=== PATIENT | female | born 1990 | race Caucasian/White ===

== ENCOUNTER → 2017-04-11 | Outpatient (CLI) | payer OTHER ==
[2017-04-11 11:54] LABS: ABSOLUTE BASOPHILS # (AUTO) 0.1 10^3/uL (0.0-0.2); ABSOLUTE EOSINOPHILS # (AUTO) 0.3 10^3/uL (0.0-0.6); ABSOLUTE LYMPHOCYTES (AUTO) 2.8 10^3/uL (0.5-4.7); ABSOLUTE MONOCYTES (AUTO) 0.6 10^3/uL (0.1-1.4); ABSOLUTE NEUT (AUTO) 6.3 10^3/uL (1.7-8.2); BASOPHILS % (AUTO) 0.6 % (0-2); EOSINOPHILS % (AUTO) 2.7 % (0-6); HEMATOCRIT 42.2 % (36.0-47.0); HEMOGLOBIN 13.8 g/dL (12.0-15.5); HGB HCT DIFFERENCE -0.8; MEAN CORPUSCULAR HEMOGLOBIN 27.9 pg (27.0-33.4); MEAN CORPUSCULAR HGB CONC 32.6 g/dL (32.0-36.0); MEAN CORPUSCULAR VOLUME 86 fl (80-97); MONOCYTES % (AUTO) 5.5 % (3-13); RED BLOOD COUNT 4.94 10^6/uL (3.72-5.28); RED CELL DISTRIBUTION WIDTH 14.8 % (11.5-14.0); SEGMENTED NEUTROPHILS % (AUTO) 63.2 % (42-78)
== END ==
LOC: CCC 11:09
DX: G43.909 Migraine, unspecified, not intractable, without status migrainosus (principal)
CPT/HCPCS: 36415; 85025; 86038; 86430

== ENCOUNTER 2018-04-11 09:10 | Emergency (ER) | payer SELFPAY ==
[2018-04-11 09:18] VITALS: BP 132/81
--- NOTE | 2018-04-11 09:44 | ER Document Report ---
HPI - HPI Patient complains to provider of: Cough Pain Level: 3 Context: Patient is a 28-year-old female with a history of lupus who presents to the emergency department complaining of a cough and sore throat times 10 days. Patient has tried [id number] cough cold medications without relief. Her symptoms seem to be escalating. The cough is interfering with her sleep. Associated Symptoms: Body/muscle aches, Chills, Nonproductive cough, Earache, Headache, Sinus pain/drainage, Sore throat Exacerbated by: Supine Relieved by: Denies Similar symptoms previously: No Recently seen / treated by doctor: No - ROS Systems Reviewed and Negative: Yes All other systems reviewed and negative - CONSTITUTIONAL Constitutional: REPORTS: Fever, Chills - EENT EENT: REPORTS: Sore Throat - RESPIRATORY Respiratory: REPORTS: Coughing - REPRODUCTIVE LMP: 03/23/18 Reproductive: DENIES: : Past Medical History - General Information source: Patient - Social History Smoking Status: Current Every Day Smoker Frequency of alcohol use: None Drug Abuse: None Lives with: Family Family History: Reviewed & Not Pertinent Patient has suicidal ideation: No Patient has homicidal ideation: No - Medical History Medical History: Other - lupus Pulmonary Medical History: Reports: Hx Asthma Neurological Medical History: Reports: Hx Migraine Renal/ Medical History: Denies: Hx Peritoneal Dialysis Psychiatric Medical History: Reports: Hx Depression Past Surgical History: Reports: Hx Gynecologic Surgery - Left Salpingo- oophrectomy, Hx Tonsillectomy - and adenoids - Immunizations Hx Diphtheria, Pertussis, Tetanus Vaccination: Yes Vertical Provider Document - CONSTITUTIONAL Exam Limitations: No Limitations General Appearance: WD/WN - INFECTION CONTROL TRAVEL OUTSIDE OF THE [place] IN LAST 30 DAYS: No - HEENT HEENT: Atraumatic, Pharyngeal Erythema Notes: TM sdull bilat, + ethmoid and maxillary sinus pain - NECK Neck: Supple - RESPIRATORY Respiratory: Breath Sounds Normal, No Respiratory Distress - CARDIOVASCULAR Cardiovascular: Regular Rate, Regular Rhythm - MUSCULOSKELETAL/EXTREMETIES Musculoskeletal/Extremeties: MAEW - NEURO Level of Consciousness: Awake, Alert, Appropriate Course - Re-evaluation Re-evalutation: 04/11/18 09:49 History and physical are consistent with an uncomplicated acute bacterial sinus infection with an upper respiratory infection. There are no signs of respiratory distress or pneumonia. Home care, primary care follow-up in ED return precautions were discussed with the patient. Patient is agreeable with plan is stable for discharge - Vital Signs Vital signs: Temp Pulse Resp BP Pulse Ox 98.4 F 69 16 132/81 H 99 04/11/18 09:13 04/11/18 09:13 04/11/18 09:13 04/11/18 09:13 04/11/18 09:13 Discharge - Discharge Clinical Impression: Acute sinusitis Qualifiers: Sinusitis location: frontal Recurrence: non-recurrent Qualified Code(s): J01.10 - Acute frontal sinusitis, unspecified Condition: Stable Disposition: HOME, SELF-CARE Instructions: Antibiotic Therapy ([facility]), Cough Suppressant & Expectorant Medications, Sinusitis ([facility]), Strep Throat ([facility]) Additional Instructions: Please take all your medications as prescribed I recommend [id number] Mucinex D in addition to your prescribed medications Lozenges, salt water gargles for comfort Increase your hydration Follow-up with your primary care if symptoms persist or worsen Prescriptions: Benzonatate [Tessalon Perles 100 mg Capsule] 200 mg PO Q8HP PRN #40 capsule PRN Reason: Amox Tr/Potassium Clavulanate [Augmentin 875-125 Tablet] 1 tab PO BID 10 Days # 20 tablet Fluconazole [Diflucan] 200 mg PO ONCE PRN #1 tablet PRN Reason: Referrals: [facility] [Primary Care Provider] - Follow up as needed
== END 2018-04-11 09:47 | disposition home or self-care (01) ==
LOC: ER 09:10
DX: J01.10 Acute frontal sinusitis, unspecified (principal); J02.9 Acute pharyngitis, unspecified; R05 Cough; F17.200 Nicotine dependence, unspecified, uncomplicated
CPT/HCPCS: 87070; 87880; 99283

== ENCOUNTER → 2018-05-17 | Outpatient (CLI) | payer OTHER ==
[2018-05-17 11:05] LABS: ABSOLUTE BASOPHILS # (AUTO) 0.1 10^3/uL (0.0-0.2); ABSOLUTE EOSINOPHILS # (AUTO) 0.2 10^3/uL (0.0-0.6); ABSOLUTE LYMPHOCYTES (AUTO) 3.2 10^3/uL (0.5-4.7); ABSOLUTE MONOCYTES (AUTO) 0.9 10^3/uL (0.1-1.4); ABSOLUTE NEUT (AUTO) 8.2 10^3/uL (1.7-8.2); BASOPHILS % (AUTO) 0.5 % (0-2); EOSINOPHILS % (AUTO) 1.3 % (0-6); HEMATOCRIT 40.1 % (36.0-47.0); HEMOGLOBIN 13.1 g/dL (12.0-15.5); LYMPHOCYTES % (AUTO) 25.5 % (13-45); MEAN CORPUSCULAR HEMOGLOBIN 28.2 pg (27.0-33.4); MEAN CORPUSCULAR HGB CONC 32.7 g/dL (32.0-36.0); MEAN CORPUSCULAR VOLUME 86 fl (80-97); MONOCYTES % (AUTO) 6.9 % (3-13); PLATELET COUNT 312 10^3/uL (150-450); RED BLOOD COUNT 4.66 10^6/uL (3.72-5.28); RED CELL DISTRIBUTION WIDTH 13.7 % (11.5-14.0); SEGMENTED NEUTROPHILS % (AUTO) 65.8 % (42-78); TOTAL CELLS COUNTED % (AUTO) 100 %; WHITE BLOOD COUNT 12.4 10^3/uL (4.0-10.5)
[2018-05-17 11:26] LABS: APPEARANCE,URINE CLEAR; BILIRUBIN,URINE NEGATIVE (NEGATIVE); COLOR,URINE YELLOW; GLUCOSE, URINE NEGATIVE (NEGATIVE); KETONES,URINE NEGATIVE (NEGATIVE); LEUKOCYTE ESTERASE,URINE NEGATIVE (NEGATIVE); NITRITE,URINE NEGATIVE (NEGATIVE); PROTEIN,URINE NEGATIVE (NEGATIVE); UROBILINOGEN,URINE NEGATIVE mg/dL (<2.0)
[2018-05-17 11:30] LABS: ALANINE AMINOTRANSFERASE 27 U/L (9-52); ALBUMIN 4.3 g/dL (3.5-5.0); ALKALINE PHOSPHATASE 71 U/L (38-126); ANION GAP 13 (5-19); ASPARTATE AMINO TRANSFERASE 14 U/L (14-36); BILIRUBIN,DIRECT 0.3 mg/dL (0.0-0.4); BILIRUBIN,TOTAL 0.4 mg/dL (0.2-1.3); BLOOD UREA NITROGEN 9 mg/dL (7-20); CALCIUM 9.5 mg/dL (8.4-10.2); CARBON DIOXIDE 20 mmol/L (22-30); CHLORIDE 110 mmol/L (98-107); GLUCOSE 75 mg/dL (75-110); POTASSIUM 4.2 mmol/L (3.6-5.0); SODIUM 143.1 mmol/L (137-145); URIC ACID 3.8 mg/dL (2.5-6.2)
[2018-05-17 11:36] LABS: C-REACTIVE PROTEIN < 5.0 mg/L (<10.0)
[2018-05-17 11:52] LABS: ERYTHROCYTE SEDIMENTATION RATE 10 mm/hr (0-20)
== END ==
LOC: CCC 10:18
DX: M32.10 Systemic lupus erythematosus, organ or system involvement unspecified (principal)
CPT/HCPCS: 36415; 80053; 81001; 84550; 85025; 85652; 86140

== ENCOUNTER 2018-09-09 03:00 | Emergency (ER) | payer SELFPAY ==
[2018-09-09] MEDS ORDERED: NORMAL SALINE 1000 ML 1,000 ML IV ONE (03:16)
[2018-09-09] MEDS ORDERED: METOCLOPRAMIDE HCL INJ/PF 10 MG/2 ML SDV IV ONE (03:16)
[2018-09-09] MEDS ORDERED: DIPHENHYDRAMINE HCL 50 MG/ML VIAL IV ONE (03:16)
--- NOTE | 2018-09-09 03:23 | ER Document Report ---
ED General - General Chief Complaint: Headache >24 hrs old Stated Complaint: HEADACHE/VOMITING Time Seen by Provider: 09/09/18 03:10 Notes: Patient is a 28-year-old female presents with complaint of severe sudden onset headache that occurred 2 nights ago. Since then she has had waxing waning of the headache and then tonight it woke up from sleep and was severe with vomiting therefore she came to the ER. Headache is in the posterior occipital region into the neck. She has some associated neck stiffness. No weakness or numbness into extremities. No facial droop. She has a history of chronic migraines but says her migraines are typically behind her right eye. She has her migraines usually do not affect the back of her head or neck. She says this headache feels very different from her typical migraines. No recent fevers or infections. No recent trauma or injuries. No other complaints at this time. TRAVEL OUTSIDE OF THE [place] IN LAST 30 DAYS: No - Related Data Allergies/Adverse Reactions: ibuprofen Allergy (Verified 09/09/18 04:04) morphine [Morphine] Allergy (Verified 09/09/18 04:04) naproxen [Naproxen] Allergy (Verified 09/09/18 04:04) NSAIDS (Non-Steroidal Anti-Inflamma Allergy (Verified 09/09/18 04:04) Sulfa (Sulfonamide Antibiotics) Allergy (Verified 09/09/18 04:04) Past Medical History - Social History Smoking Status: Unknown if Ever Smoked Frequency of alcohol use: None Drug Abuse: None Family History: Reviewed & Not Pertinent Pulmonary Medical History: Reports: Hx Asthma Neurological Medical History: Reports: Hx Migraine Renal/ Medical History: Denies: Hx Peritoneal Dialysis Psychiatric Medical History: Reports: Hx Depression Past Surgical History: Reports: Hx Gynecologic Surgery - Left Salpingo- oophrectomy, Hx Tonsillectomy - and adenoids - Immunizations Hx Diphtheria, Pertussis, Tetanus Vaccination: Yes Review of Systems - Review of Systems Notes: My Normal Review Basic REVIEW OF SYSTEMS: CONSTITUTIONAL : Denies fever, chills, or sweats. Denies recent illness. EENT: Denies eye, ear, throat, or mouth pain or symptoms. Denies nasal or sinus congestion. RESPIRATORY: Denies cough, cold, or chest congestion. Denies shortness of breath, difficulty breathing, or wheezing. GASTROINTESTINAL: Denies abdominal pain. Has vomiting GENITOURINARY: Denies difficulty urinating, painful urination, burning, frequency, or blood in urine. FEMALE GENITOURINARY: Denies vaginal bleeding, abnormal or irregular periods. MUSCULOSKELETAL: Has neck pain SKIN: Denies rash or skin lesions. LYMPHATIC: Denies swollen, enlarged glands. NEUROLOGICAL: Denies altered mental status or loss of consciousness. Severe headache. Denies weakness or paralysis or loss of use of either side. Denies problems with gait or speech. Denies sensory or motor loss. ALL OTHER SYSTEMS REVIEWED AND NEGATIVE. Physical Exam - Vital signs Vitals: Temp Pulse Resp BP Pulse Ox 97.8 F 69 18 121/82 98 09/09/18 03:03 09/09/18 03:03 09/09/18 03:03 09/09/18 03:03 09/09/18 03:03 - Notes Notes: General Appearance: Well nourished, alert, cooperative, no acute distress, moderate obvious discomfort. Vitals: reviewed, See vital signs table. Head: no swelling or tenderness to the head Eyes: PERRL, EOMI, Conjuctiva clear Mouth: No decreasd moisture Neck: Supple, no reducible tenderness palpation of the neck. Lungs: No wheezing, No rales, No rhonci, No accessory muscle use, good air exchange bilaterally. Heart: Normal rate, Regular rythm, No murmur, no rub Abdomen: Normal BS, soft, No rigidity, No abdominal tenderness, No guarding, no rebound, no abdominal masses, no organomegaly Extremities: strength 5/5 in all extremities, good pulses in all extremities, no swelling or tenderness in the extremities, no edema. Skin: warm, dry, appropriate color, no rash Neuro: speech clear, oriented x 3, normal affect, responds appropriately to questions. Cranial nerves II through XII are intact. Distal sensation intact. Patient moves all extremities without difficulty. Normal gait. Course - Re-evaluation Re-evalutation: 09/09/18 04:24 On reevaluation the patient's headache is still present. CTA of the head and neck are negative. I talked at length about CTA. I informed her that CT is sensitive for picking up see 1 years however is not 100% sensitive. I informed her that we could still be missing a cerebral aneurysm that is bleeding as a potential cause of her headache. I informed her the only test that is 100% sensitive would be a lumbar puncture. She has had lumbar punctures before. She is understanding of the procedure. She is understanding of the fact that CTA of the head is very sensitive for cerebral aneurysms but not 100% in ruling out bleeding. At this time she wants to hold off on a lumbar puncture and wants to continue with different treatment options for her headache. I will order for the pain medicine and then we will readdress the question about lumbar puncture afterwards. 09/09/18 05:14 She says her headache is feeling much improved. I ill let her rest another 15 minutes and then reassess her. 09/09/18 05:43 His headache is still completely resolved and she looks very well and very comfortable. I discussed again with her about lumbar puncture that is our recommendation to have this performed being is 1-6 and 100% rule out bleeding aneurysm. She has had lumbar punctures in the past and says that following lumbar punctures she developed post-LP headache. She says she feels very well and understands the risks she is taking by not having the lumbar puncture performed. She said prefers to go home but agrees to return to ER immediately if she has any recurrence of this headache or if she feels unwell in any way. Patient will be discharged home as she requests. Patient informed that we are happy to reevaluate her at any time and want her to return if she has any recurrence of symptoms. Dictation of this chart was performed using voice recognition software; therefore, there may be some unintended grammatical errors. - Vital Signs Vital signs: Temp Pulse Resp BP Pulse Ox 97.8 F 69 54 H 104/51 L 96 09/09/18 03:03 09/09/18 03:03 09/09/18 05:01 09/09/18 05:01 09/09/18 05:01 - Laboratory Result Diagrams: 09/09/18 03:31 09/09/18 03:31 Laboratory results interpreted by me: 09/09/18 09/09/18 03:31 03:31 WBC 15.3 H RDW 14.2 H Absolute Neutrophils 10.1 H Creatinine 0.51 L Discharge - Discharge Clinical Impression: Headache Qualifiers: Headache type: unspecified Headache chronicity pattern: acute headache Intractability: not intractable Qualified Code(s): R51 - Headache Condition: Good Disposition: HOME, SELF-CARE Additional Instructions: As discussed with you we do not know the exact cause of your headache. This could be an atypical migraine for you however there is no way to know this for sure. We are glad that your headache is better however we want you to have a low threshold to return to ER if you have recurrence of your headache. This is because we are unable to 100% rule out the possibility of a bleeding aneurysm with CT scan alone. As discussed with you, lumbar puncture is the one test I can perform at this time to 100% rule this out. We suspect your right to decide against a lumbar puncture however we want you to have a very low threshold to return to the ER if you have recurrence of the headache, as a bleeding aneurysm could be potentially life-threatening. Please return to ER anytime if you have any further concerns or feel that your headache is returning in any way.
[2018-09-09 03:41] LABS: ABSOLUTE BASOPHILS # (AUTO) 0.1 10^3/uL (0.0-0.2); ABSOLUTE EOSINOPHILS # (AUTO) 0.2 10^3/uL (0.0-0.6); ABSOLUTE LYMPHOCYTES (AUTO) 3.5 10^3/uL (0.5-4.7); ABSOLUTE MONOCYTES (AUTO) 1.4 10^3/uL (0.1-1.4); ABSOLUTE NEUT (AUTO) 10.1 10^3/uL (1.7-8.2); BASOPHILS % (AUTO) 0.8 % (0-2); EOSINOPHILS % (AUTO) 1.5 % (0-6); HEMATOCRIT 39.4 % (36.0-47.0); HEMOGLOBIN 13.2 g/dL (12.0-15.5); LYMPHOCYTES % (AUTO) 22.7 % (13-45); MEAN CORPUSCULAR HEMOGLOBIN 28.4 pg (27.0-33.4); MEAN CORPUSCULAR HGB CONC 33.5 g/dL (32.0-36.0); MEAN CORPUSCULAR VOLUME 85 fl (80-97); MONOCYTES % (AUTO) 8.9 % (3-13); PLATELET COUNT 289 10^3/uL (150-450); RED BLOOD COUNT 4.65 10^6/uL (3.72-5.28); RED CELL DISTRIBUTION WIDTH 14.2 % (11.5-14.0); SEGMENTED NEUTROPHILS % (AUTO) 66.1 % (42-78); TOTAL CELLS COUNTED % (AUTO) 100 %; WHITE BLOOD COUNT 15.3 10^3/uL (4.0-10.5)
[2018-09-09 03:52] LABS: INTERNATIONAL RATION (INR) 0.93; PROTHROMBIN TIME 12.9 SEC (11.4-15.4)
[2018-09-09 03:53] LABS: PARTIAL THROMBOPLASTIN TIME 28.5 SEC (23.5-35.8)
[2018-09-09 04:01] LABS: ANION GAP 10 (5-19); BLOOD UREA NITROGEN 10 mg/dL (7-20); CALCIUM 9.6 mg/dL (8.4-10.2); CARBON DIOXIDE 25 mmol/L (22-30); CHLORIDE 107 mmol/L (98-107); GLUCOSE 95 mg/dL (75-110); POTASSIUM 4.9 mmol/L (3.6-5.0); SODIUM 141.8 mmol/L (137-145)
--- NOTE | 2018-09-09 04:19 | RADIOLOGY REPORT (SQ) ---
EXAM DESCRIPTION: CT HEAD ANGIOGRAPHY WITHOUT THEN WITH IV CONTRAST, CT NECK ANGIOGRAPHY WITHOUT THEN WITH IV CONTRAST COMPLETED DATE/TME: 09/09/2018 03:17 CLINICAL HISTORY: 28 years, Female, headache, neck pain COMPARISON: None. TECHNIQUE: Rapid acquisition spiral images were obtained following the intravenous administration of contrast. 3D MIP reconstructions were performed. DLP: 1536 mGy-cm Images stored on PACS. All CT scanners at this facility use dose modulation, iterative reconstruction, and/or weight based dosing when appropriate to reduce radiation dose to as low as reasonably achievable (ALARA). [facility]: Dose Right [facility]: CareDose [facility]: Dose Right [facility]: Teradose 4D [facility]: Nveloped LIMITATIONS: None. FINDINGS: CTA NECK: Aortic arch: Standard anatomy. No atherosclerosis. No great vessel origin stenosis. Left carotid system: The common carotid artery, carotid bifurcation , and internal carotid artery have normal course, caliber, and contour without atherosclerosis or stenosis by NASCET criteria Right carotid system: The common carotid artery, carotid bifurcation , and internal carotid artery have normal course, caliber, and contour without atherosclerosis or stenosis by NASCET criteria Vertebral arteries: Left dominant system. Normal course, caliber, and contour without atherosclerosis or stenosis>] Nonvascular tissues: No mucosal contour abnormality, abnormal enhancement, or asymmetry. Normal salivary and thyroid glands. No lymphadenopathy. CTA BRAIN: Distal Internal carotid arteries: Normal course, caliber, and contour without atherosclerosis or stenosis Reading of Akbar: Standard configuration without proximal stenosis or aneurysm. Anterior cerebral arteries: No focal stenosis or aneurysm. Middle cerebral arteries: No focal stenosis or aneurysm Posterior cerebral arteries: No focal stenosis or aneurysm. Vertebrobasilar circulation: The intradural vertebral arteries, basilar artery, and all cerebellar branches are patent without focal stenosis or aneurysm. Veins: The major dural venous sinus, cortical and deep cerebral veins are patent. Paranasal sinuses:Clear IMPRESSION: 1. No major branch occlusion, flow limiting stenosis, or aneurysm is identified intracranially. 2. No cervical carotid or vertebral stenosis TECHNICAL DOCUMENTATION: Quality ID # [id number]: Final reports with documentation of one or more dose reduction techniques (e.g., Automated exposure control, adjustment of the mA and/or kV according to patient size, use of iterative reconstruction technique) 2010 [employer]- All Rights Reserved
[2018-09-09] MEDS ORDERED: HYDROMORPHONE HCL INJ/PF 2 MG/ML AMPULE IV ONE (04:23)
[2018-09-09] MEDS ORDERED: DEXAMETHASONE SOD PHOS INJ 10 MG/1 ML VIAL IV ONE (04:24)
[2018-09-09 06:01] VITALS: BP 100/53
== END 2018-09-09 05:57 | disposition home or self-care (01) ==
LOC: ER 03:00
DX: R51 Headache (principal); R11.10 Vomiting, unspecified; M43.6 Torticollis; M54.2 Cervicalgia; J45.909 Unspecified asthma, uncomplicated; Z86.69 Personal history of other diseases of the nervous system and sense organs; Z88.6 Allergy status to analgesic agent; Z88.5 Allergy status to narcotic agent; Z88.8 Allergy status to other drugs, medicaments and biological substances; Z88.2 Allergy status to sulfonamides
CPT/HCPCS: 99284; 96361; 96374; 96375; 36415; 85025; 85610; 85730; 80048; 70496; 70498; J1200; J2765; J1170; J7030; J1100

== ENCOUNTER 2018-09-20 11:52 | Emergency (ER) | payer SELFPAY ==
[2018-09-20 11:58] VITALS: BP 136/75
--- NOTE | 2018-09-20 13:10 | ER Document Report ---
ED Headache - General Chief Complaint: Headache Stated Complaint: HEADACHE Time Seen by Provider: 09/20/18 13:00 Mode of Arrival: Ambulatory Information source: Patient Notes: History of Present Illness Chief Complaint: [headache] [ ] History obtained from [patient] 28 years old female presents today with headache and neck pain, she was fully evaluated a few days ago in the ER. She does work involves a lot of lifting. She was nauseous and vomited yesterday once. Has been taking Fioricet without help. Symptoms began: [today] Onset: [gradual] Timing: [constant] Quality: ["pain"] No different than prior severe headaches Intensity: [severe, but not worst ever] Location: [frontal] Aggravating factors: [none] Relieving factors: [none] Denies neck pain or stiffness Denies rash Denies visual loss or eye pain. Denies tick bite Denies head injury Denies weakness, numbness, incontinence, seizure, LOC Review of systems : All other systems negative as reviewed. CONSTITUTIONAL No fever. EYES No eye pain. ENT No URI symptoms, No sore throat, No ear pain. CARDIOVASCULAR No chest pain, No palpitations, No edema. RESPIRATORY No Cough, No SOB, No wheezing. GASTROINTESTINAL No abdominal pain, No nausea, No vomiting, No diarrhea, No constipation, No melena, No rectal bleeding. GENITOURINARY No UTI symptoms. MUSCULOSKELETAL No back pain. SKIN No Rash. NEUROLOGIC No paralysis, No parathesias. ENDOCRINE No polyuria. HEMO/LYMPATIC Patient does not bruise easily. PSYCHIATRIC No depression. Physical Exam CONSTITUTIONAL Vital signs reviewed, Comfortable, Alert and oriented X 3. HEAD Atraumatic, Normal cephalic. EYES No discharge from eye, Sclera are not injected, Extraocular muscles intact, Conjunctiva are normal.perrl,2mm, no photophobia, no nystagmus, fundi wnl. ENT Ears normal to inspection, Nose examination normal, Oropharynx normal, Mucous membranes pink, moist, normal in color. NECK Sharp paraspinal muscular tenderness were noted on palpation Normal inspection, supple, Normal ROM, No jugular venous distention, No meningeal signs, no carotid bruit or tenderness. RESPIRATORY/CHEST Chest is non-tender, Breath sounds normal, No respiratory distress. CARDIOVASCULAR RRR, Heart sounds normal. ABDOMEN Abdomen is non-tender, No masses, Bowel sounds normal, No distension, No peritoneal signs. BACK Normal inspection. UPPER EXTREMITY Inspection normal, No cyanosis/clubbing/edema. LOWER EXTREMITY Inspection normal, No cyanosis/clubbing/edema, No calf tenderness. NEURO cn intact, no astreixis, no pronator drift, finger to nose testing coordinated bilaterally, 1+ deep tendon reflexes x 4 ext, down going babinski bilaterally , normal speech, Motor exam normal, Sensory exam normal. SKIN Skin is warm and dry, No rash. LYMPHATIC No adenopathy in neck. PSYCHIATRIC Normal affect. TRAVEL OUTSIDE OF THE [place] IN LAST 30 DAYS: No - HPI Notes: Dictated - Related Data Allergies/Adverse Reactions: ibuprofen Allergy (Verified 09/20/18 11:55) morphine [Morphine] Allergy (Verified 09/20/18 11:55) naproxen [Naproxen] Allergy (Verified 09/20/18 11:55) NSAIDS (Non-Steroidal Anti-Inflamma Allergy (Verified 09/20/18 11:55) Sulfa (Sulfonamide Antibiotics) Allergy (Verified 09/20/18 11:55) Past Medical History - Social History Smoking Status: Current Every Day Smoker Chew tobacco use (# tins/day): No Frequency of alcohol use: None Drug Abuse: None Family History: Reviewed & Not Pertinent Patient has suicidal ideation: No Patient has homicidal ideation: No Pulmonary Medical History: Reports: Hx Asthma Neurological Medical History: Reports: Hx Migraine Renal/ Medical History: Denies: Hx Peritoneal Dialysis Psychiatric Medical History: Reports: Hx Depression Past Surgical History: Reports: Hx Gynecologic Surgery - Left Salpingo- oophrectomy, Hx Tonsillectomy - and adenoids - Immunizations Hx Diphtheria, Pertussis, Tetanus Vaccination: Yes Review of Systems - Review of Systems Notes: Dictated Physical Exam - Vital signs Vitals: Temp Pulse Resp BP Pulse Ox 97.9 F 67 18 136/75 H 98 09/20/18 11:56 09/20/18 11:56 09/20/18 11:56 09/20/18 11:56 09/20/18 11:56 - Notes Notes: Dictated Course - Vital Signs Vital signs: Temp Pulse Resp BP Pulse Ox 97.9 F 67 18 136/75 H 98 09/20/18 11:56 09/20/18 11:56 09/20/18 11:56 09/20/18 11:56 09/20/18 11:56 Discharge - Discharge Clinical Impression: Acute cervical sprain Qualifiers: Encounter type: initial encounter Qualified Code(s): S13.9XXA - Sprain of joints and ligaments of unspecified parts of neck, initial encounter Condition: Fair Disposition: HOME, SELF-CARE Instructions: Headache ([facility]), Neck Injury (Cervical Strain) ([facility]) Prescriptions: Baclofen [Baclofen 10 mg Tablet] 10 mg PO TID #90 tab Diazepam [Valium 2 mg Tablet] 2 mg PO BID #15 tablet Tramadol HCl [Ultram] 50 mg PO TID #14 tablet
== END 2018-09-20 13:11 | disposition home or self-care (01) ==
LOC: ER 11:52
DX: S13.9XXA Sprain of joints and ligaments of unspecified parts of neck, initial encounter (principal); R51 Headache; X58.XXXA Exposure to other specified factors, initial encounter; F17.200 Nicotine dependence, unspecified, uncomplicated; Z88.6 Allergy status to analgesic agent; Z88.2 Allergy status to sulfonamides
CPT/HCPCS: 99283

== ENCOUNTER 2018-11-10 04:52 | Emergency (ER) | payer SELFPAY ==
[2018-11-10] MEDS ORDERED: CLINDAMYCIN HCL 150 MG CAPSULE PO ONE (05:47)
--- NOTE | 2018-11-10 05:53 | ER Document Report ---
ED General - General Chief Complaint: Facial Swelling Stated Complaint: FACIAL SWELLING Time Seen by Provider: 11/10/18 05:47 TRAVEL OUTSIDE OF THE [place] IN LAST 30 DAYS: No - HPI Notes: Patient is a 28-year-old female that presents to the emergency department for chief complaint of right facial swelling. Patient states she had some right lower dental pain yesterday and when she woke up this morning the right side of her face was swelling. She denies any drainage. She denies any fevers or chills. She is not having any swelling underneath her tongue or difficulty breathing. She has a history of dental decay and has an appointment on 11/14/18 with a climatology professor to discuss getting her teeth extracted and implants put in. Past Medical History: Lupus, ovarian cancer Past Surgical History: Oophorectomy, partial bowel resection Social History: Denies drugs alcohol and tobacco Family History: Reviewed and noncontributory for presenting illness Allergies: Reviewed, see documented allergy list. REVIEW OF SYSTEMS: CONSTITUTIONAL : No fever No chills No diaphoresis No recent illness EENT: Dental pain Facial swelling No vision changes No congestion No sore throat CARDIOVASCULAR: No chest pain No palpitations RESPIRATORY: No shortness of breath No cough No difficulty breathing GASTROINTESTINAL: No abdominal pain No nausea No vomiting No diarrhea GENITOURINARY: No dysuria No hematuria No difficulty urinating MUSCULOSKELETAL: No back pain No leg pain No arm pain SKIN: No rashes No lesions LYMPHATIC: No swollen, enlarged glands. NEUROLOGICAL: No lightheadedness No headache No weakness No paresthesias PSYCHIATRIC: No anxiety No depression PHYSICAL EXAMINATION: Vital signs reviewed, nursing noted reviewed. GENERAL: Well-appearing, well-nourished and in no acute distress. HEAD: Atraumatic, normocephalic. EYES: Eyes appear normal, extraocular movements intact, sclera anicteric, conjunctiva are normal. ENT: Diffuse dental decay worse on the right posterior mandibular teeth. Facial swelling overlying right mandible with no discernible area of fluctuance. No facial erythema. No sublingual edema. Nares patent, oropharynx clear without exudates. Moist mucous membranes. NECK: Normal range of motion, supple without lymphadenopathy LUNGS: Breath sounds clear to auscultation bilaterally and equal. No wheezes rales or rhonchi. HEART: Regular rate and rhythm without murmurs ABDOMEN: Soft, nontender, normoactive bowel sounds. No rebound, guarding, or rigidity. No masses appreciated. EXTREMITIES: Nontender, good range of motion, no pitting or edema. NEUROLOGICAL: No focal neurological deficits. Moves all extremities spontaneously Motor and sensory grossly intact on exam. PSYCH: Normal mood, normal affect. SKIN: Warm, Dry, normal turgor, no rashes or lesions noted on exposed skin - Related Data Allergies/Adverse Reactions: ibuprofen Allergy (Verified 09/20/18 11:55) morphine [Morphine] Allergy (Verified 09/20/18 11:55) naproxen [Naproxen] Allergy (Verified 09/20/18 11:55) NSAIDS (Non-Steroidal Anti-Inflamma Allergy (Verified 09/20/18 11:55) Sulfa (Sulfonamide Antibiotics) Allergy (Verified 09/20/18 11:55) Past Medical History - Social History Smoking Status: Never Smoker Family History: Reviewed & Not Pertinent Pulmonary Medical History: Reports: Hx Asthma Neurological Medical History: Reports: Hx Migraine Renal/ Medical History: Denies: Hx Peritoneal Dialysis Psychiatric Medical History: Reports: Hx Depression Past Surgical History: Reports: Hx Gynecologic Surgery - Left Salpingo- oophrectomy, Hx Tonsillectomy - and adenoids - Immunizations Hx Diphtheria, Pertussis, Tetanus Vaccination: Yes Physical Exam - Vital signs Vitals: Temp Pulse Resp BP Pulse Ox 98.3 F 90 14 118/83 98 11/10/18 04:55 11/10/18 04:55 11/10/18 04:55 11/10/18 04:55 11/10/18 04:55 Course - Re-evaluation Re-evalutation: 11/10/18 05:51 Vitals reviewed. Nursing notes reviewed. Patient has swelling over her right mandibular region suggestive of a dental infection. There is no discernible area of fluctuance requiring incision and drainage. Patient has an appointment with her climatology professor on 11/14 which she will keep for follow-up. She will be started on clindamycin for her infection. She was counseled on symptoms of Harley's angina and told to return to the emergency room if any of them appear. Currently she does not have Harley's angina. Patient will be discharged home in stable condition. - Vital Signs Vital signs: Temp Pulse Resp BP Pulse Ox 98.3 F 90 14 118/83 98 11/10/18 04:55 11/10/18 04:55 11/10/18 04:55 11/10/18 04:55 11/10/18 04:55 Discharge - Discharge Clinical Impression: Facial swelling, Dental infection Condition: Stable Disposition: HOME, SELF-CARE Instructions: Dental Infection or Abscess ([facility]) Additional Instructions: Please return to the emergency department if you have any worsening, or concern of your symptoms. Please return to the emergency department if you develop chest pain, difficulty breathing, severe abdominal pain, or ongoing vomiting. Please follow-up with your primary care physician in 2-3 days and any other recommended physicians. If prescribed, take all medications as directed. If you have any questions or concerns do not hesitate to return the emergency department for evaluation. Follow-up with your climatology professor as already scheduled. Return to the emergency room if you notice any swelling underneath your tongue or have difficulty breathing Prescriptions: Clindamycin HCl [Cleocin 300 mg Capsule] 600 mg PO Q6 #168 cap Referrals: [facility] [Provider Group] - Follow up in 3-5 days
[2018-11-10 06:23] VITALS: BP 130/68
== END 2018-11-10 06:06 | disposition home or self-care (01) ==
LOC: ER 04:52
DX: K04.7 Periapical abscess without sinus (principal); R22.0 Localized swelling, mass and lump, head; K08.89 Other specified disorders of teeth and supporting structures
CPT/HCPCS: 99283

== ENCOUNTER 2019-01-22 06:21 | Emergency (ER) | payer BC ==
[2019-01-22] MEDS ORDERED: METHOCARBAMOL INJ/PF 1000 MG/10 ML SDV IV ONE (08:00)
[2019-01-22] MEDS ORDERED: NORMAL SALINE 1000 ML 1,000 ML IV ONE (08:00)
[2019-01-22] MEDS ORDERED: DIPHENHYDRAMINE HCL 50 MG/ML VIAL IV ONE (08:01)
[2019-01-22] MEDS ORDERED: ONDANSETRON HCL INJ/PF 4 MG/2 ML SDV IV ONE (08:01)
[2019-01-22] MEDS ORDERED: PROCHLORPERAZINE EDISYLATE INJ 10 MG/2 ML VIAL IV ONE (08:02)
[2019-01-22 10:36] VITALS: BP 122/72
--- NOTE | 2019-01-22 12:15 | ER Document Report ---
Entered by GABRIELE AYERS SCRIBE 01/22/19 0811 Acting as scribe for:ROSS TORRES MD ED General - General Chief Complaint: Nausea/Vomiting Stated Complaint: NAUSEA AND HEADACHE Time Seen by Provider: 01/22/19 07:45 Mode of Arrival: Ambulatory Information source: Patient Notes: Patient is a 28 year old female with migraines presents to the emergency department complaining of a headache, nausea and vomiting onset 2 days ago. Patient states her current headache is located at the base of her skull and into her neck which is different from her normal headaches which are located mainly behind the eyes and on the top of her head. She also states Topamax typically alleviates her headaches although it has not helped with her current headache. She further states she has been unable to keep medications down to vomiting. Patient is currently on her menstrual cycle which she states is normal and on time. TRAVEL OUTSIDE OF THE [place] IN LAST 30 DAYS: No - Related Data Allergies/Adverse Reactions: ibuprofen Allergy (Verified 01/22/19 07:44) morphine [Morphine] Allergy (Verified 01/22/19 07:44) naproxen [Naproxen] Allergy (Verified 01/22/19 07:44) NSAIDS (Non-Steroidal Anti-Inflamma Allergy (Verified 01/22/19 07:44) Sulfa (Sulfonamide Antibiotics) Allergy (Verified 01/22/19 07:44) Past Medical History - General Information source: Patient - Social History Smoking Status: Never Smoker Cigarette use (# per day): No Chew tobacco use (# tins/day): No Smoking Education Provided: No Frequency of alcohol use: None Family History: Reviewed & Not Pertinent Pulmonary Medical History: Reports: Hx Asthma Neurological Medical History: Reports: Hx Migraine Psychiatric Medical History: Reports: Hx Depression Past Surgical History: Reports: Hx Gynecologic Surgery - Left Salpingo- oophrectomy, Hx Tonsillectomy - and adenoids - Immunizations Hx Diphtheria, Pertussis, Tetanus Vaccination: Yes Review of Systems - Review of Systems Constitutional: No symptoms reported EENT: No symptoms reported Cardiovascular: No symptoms reported Respiratory: No symptoms reported Gastrointestinal: See HPI, Abdominal pain, Nausea, Vomiting Genitourinary: No symptoms reported Female Genitourinary: No symptoms reported Musculoskeletal: See HPI Skin: No symptoms reported Hematologic/Lymphatic: No symptoms reported Neurological/Psychological: See HPI, Headaches -: Yes All other systems reviewed and negative Physical Exam - Vital signs Vitals: Temp Pulse Resp BP Pulse Ox 98.6 F 60 14 137/103 H 98 01/22/19 06:24 01/22/19 06:24 01/22/19 06:24 01/22/19 06:24 01/22/19 06:24 - Notes Notes: GENERAL: Alert, interacts well. No acute distress. HEAD: Normocephalic, atraumatic. EYES: Pupils equal, round, and reactive to light. Extraocular movements intact. ENT: Oral mucosa moist, tongue midline. NECK: Full range of motion. Supple. Trachea midline. Right posterior cervical muscles into the nuchal insertion tender to palpation. LUNGS: Clear to auscultation bilaterally, no wheezes, rales, or rhonchi. No respiratory distress. HEART: Regular rate and rhythm. No murmurs, gallops, or rubs. ABDOMEN: Soft, non-tender. Non-distended. Bowel sounds present in all 4 quadrants. No guarding, rigidity, or rebound. EXTREMITIES: Moves all 4 extremities spontaneously. NEUROLOGICAL: Alert and oriented x3. Normal speech. PSYCH: Normal affect, normal mood. SKIN: Warm, dry, normal turgor. No rashes or lesions noted. BACK: Right trapezius muscles into right shoulder tender to palpation. Right scapular tender to palpation. Course - Re-evaluation Re-evalutation: 01/22/19 09:59 The patient reports that she is feeling much better at this time. She had told the nurse previously that the headache cocktails in the past do not help. This one was a little different in that we added Robaxin. 01/22/19 10:39 The soft collar and right arm sling were applied by the PCT. The soft cervical collar does provide some support for the base of the head to allow the neck muscles to relax, and the sling provides support to the shoulder to allow the trapezius muscles on the right side to relax, providing some additional comfort. - Vital Signs Vital signs: Temp Pulse Resp BP Pulse Ox 98.0 F 71 16 122/72 99 01/22/19 10:32 01/22/19 10:32 01/22/19 10:32 01/22/19 10:32 01/22/19 10:32 Discharge - Discharge Clinical Impression: Tension type headache Qualifiers: Headache chronicity pattern: acute headache Intractability: not intractable Qualified Code(s): G44.209 - Tension-type headache, unspecified, not intractable Condition: Stable Disposition: HOME, SELF-CARE Additional Instructions: Tension Headache Your problem has been diagnosed as muscle tension headache. This very common type of headache occurs because of tightness in the muscles of the head and neck. The cause may be neck or jaw joint problems, but most commonly the cause is emotional stress. The headache may last hours or days. The treatment of uncomplicated tension headaches is rest and pain medication. Often, the newer antiinflammatory pain medications are prescribed, as these also decrease the irritability of the painful tissues. Muscle relaxers, cold packs, or warm packs are sometimes helpful. Anti-anxiety medication or narcotics are sometimes needed temporarily, but are best avoided in the long run. Your doctor has evaluated your headache problem, and finds no evidence of a serious health problem as a cause for the headache. If your headache becomes more severe, or if new symptoms develop (such as fever, stiff neck, vomiting, or decreasing alertness) you should be re-examined by the physician. Take the methocarbamol muscle relaxer as prescribed for the next few days. Try moist heat and ice packs to the painful muscles. See if using a soft collar and a sling to support the weight of your arm, allows you to relax your shoulder and neck muscles. Follow-up with your primary care provider if not improving. RETURN TO THE EMERGENCY ROOM IF ANY NEW OR WORSENING SYMPTOMS. Prescriptions: Methocarbamol [Robaxin 500 mg Tablet] 500 mg PO QID #20 tablet I personally performed the services described in the documentation, reviewed and edited the documentation which was dictated to the scribe in my presence, and it accurately records my words and actions.
== END 2019-01-22 10:36 | disposition home or self-care (01) ==
LOC: ER 06:21
DX: G44.209 Tension-type headache, unspecified, not intractable (principal); R11.2 Nausea with vomiting, unspecified; R10.9 Unspecified abdominal pain; Z79.899 Other long term (current) drug therapy; J45.909 Unspecified asthma, uncomplicated
CPT/HCPCS: 99283; 96375; 96365; L0120; J1200; J2800; J0780; J2405; J7030

== ENCOUNTER 2019-06-01 06:02 | Emergency (ER) | payer BC ==
[2019-06-01 06:08] VITALS: BP 125/74
[2019-06-01] MEDS ORDERED: PROCHLORPERAZINE EDISYLATE INJ 10 MG/2 ML VIAL IV ONE (06:36)
[2019-06-01] MEDS ORDERED: NORMAL SALINE 1000 ML 1,000 ML IV ONE (06:36)
[2019-06-01] MEDS ORDERED: METHOCARBAMOL INJ/PF 1000 MG/10 ML SDV IV ONE (06:36)
[2019-06-01] MEDS ORDERED: DIPHENHYDRAMINE HCL 50 MG/ML VIAL IV ONE (06:36)
--- NOTE | 2019-06-01 06:49 | ER Document Report ---
Entered by MARKEL REGALADO SCRIBE 06/01/19 0640 Acting as scribe for:ROSS TORRES MD ED Headache - General Chief Complaint: Headache, Worst Ever Stated Complaint: HEADACHE Time Seen by Provider: 06/01/19 06:29 Primary Care Provider: ABBY MCCANN MD [Primary Care Provider] - Follow up as needed Mode of Arrival: Ambulatory Information source: Patient Notes: 29-year-old female who presents to the emergency department today with complaints of a migraine headache. Patient states she has a history of migraine headaches however she states this is "worst one she has ever had". Patient states that she used to take Fioricet for her migraine headaches however her and her doctor decided to take her off of the medication as she felt as if when taking the medication she had an increase in the amount of headaches she was having. Patient states now she has about x1-2 migraines a month. Patient complains of associated blurry vision, photophobia, phonophobia, nausea, and vomiting. Patient describes having "pintpoint vision" in her right eye. Patient denies any fevers. Patient reported to nursing staff that she has tried taking Fioricet, baclofen, and Valium for this headache with no relief. Patient denies any fevers. TRAVEL OUTSIDE OF THE [place] IN LAST 30 DAYS: No - Related Data Allergies/Adverse Reactions: ibuprofen Allergy (Verified 02/28/19 19:09) morphine [Morphine] Allergy (Verified 02/28/19 19:09) naproxen [Naproxen] Allergy (Verified 02/28/19 19:09) NSAIDS (Non-Steroidal Anti-Inflamma Allergy (Verified 02/28/19 19:09) Sulfa (Sulfonamide Antibiotics) Allergy (Verified 02/28/19 19:09) Past Medical History - General Information source: Patient - Social History Smoking Status: Never Smoker Cigarette use (# per day): No Frequency of alcohol use: None Drug Abuse: None Lives with: Family Family History: Reviewed & Not Pertinent, CAD, Thyroid Disfunction, Other - Hypertrophic cardiomyopathy Pulmonary Medical History: Reports: Hx Asthma, Hx Bronchitis Neurological Medical History: Reports: Hx Migraine Psychiatric Medical History: Reports: Hx Depression Past Surgical History: Reports: Hx Adenoidectomy, Hx Gynecologic Surgery - Left Salpingo-oophrectomy, Hx Tonsillectomy, Other - Left oophorectomy - Immunizations Hx Diphtheria, Pertussis, Tetanus Vaccination: Yes Review of Systems - Review of Systems Constitutional: denies: Fever EENT: See HPI, Eye pain, Blurred vision Cardiovascular: No symptoms reported Respiratory: No symptoms reported Gastrointestinal: See HPI, Nausea, Vomiting Genitourinary: No symptoms reported Female Genitourinary: No symptoms reported Musculoskeletal: No symptoms reported Skin: No symptoms reported Hematologic/Lymphatic: No symptoms reported Neurological/Psychological: See HPI, Headaches -: Yes All other systems reviewed and negative Physical Exam - Vital signs Vitals: Temp Pulse Resp BP Pulse Ox 97.9 F 82 16 125/74 98 06/01/19 06:06 06/01/19 06:06 06/01/19 06:06 06/01/19 06:06 06/01/19 06:06 - Notes Notes: Physical Exam: General: Alert, appears uncomfortable, room is dark for comfort. HEENT: Normocephalic. Atraumatic. PERRL. Extraocular movements intact. Oropharynx clear. Neck: Supple. Tenderness with palpation over the nuchal ridge on the right, no left sided tenderness. Right temporal and parietal muscles are tender with palpation, no left sided tenderness. No trapezius tenderness with palpation. Respiratory: No respiratory distress. Clear and equal breath sounds bilaterally. Cardiovascular: Regular rate and rhythm. Abdominal: Appears nauseated, lying on side with trash can at bedside. Back: Grossly normal. Extremities: Moves all four extremities. Upper extremities: Normal inspection. Normal ROM. Lower extremities: Normal inspection. No edema. Normal ROM. Neurological: Normal cognition. AAOx4. Normal speech. Psychological: Normal affect. Normal Mood. Skin: Warm. Dry. Normal color. Course - Re-evaluation Re-evalutation: 06/01/19 07:59 When I was going to check on the patient see how her headache was doing, the nurse informed me that the patient refused the headache cocktail stating that it does not work. The nurse also told me the patient wanted a CT scan. I went in to talk with the patient, she again told me she refused the medications because they never work. I told her that in reviewing her visit here in January of this year, she made the exact same claim, however the headache cocktail we gave here on that day did relieve her headache. She became offended when I told her this. I also offered to do the head CT scan she wanted. She stated she wanted to know why she was having such as severe headache that was affecting her vision. I did tell her that visual disturbance and migraine headache is quite common, and that after treating the headache, the vision frequently returns to normal. She did not except that and stated she was just going home since we were not doing anything to explain why her headache was worse than usual and she had the vision disturbance in the right eye. I told her that I had just offered to do the CT scan she is requesting, but she stated she was just going to go home because we were not doing anything for her. While I was preparing the discharge paperwork, she walked out the door. - Vital Signs Vital signs: Temp Pulse Resp BP Pulse Ox 97.9 F 82 16 125/74 98 06/01/19 06:06 06/01/19 06:06 06/01/19 06:06 06/01/19 06:06 06/01/19 06:06 Discharge - Discharge Clinical Impression: Headache Qualifiers: Headache type: unspecified Headache chronicity pattern: acute headache Intra ctability: not intractable Qualified Code(s): R51 - Headache Condition: Stable Disposition: AGAINST MEDICAL ADVICE Additional Instructions: You have refused the medication for your headache, claiming that it would not work based on prior experience. Review of your records shows you may the same claim on a visit here in January 2019, but the medication you received did help your headache. You told the nurse you wanted a CT scan to find out what is wrong, but when I offered to do the CT scan, you refused and stated you were just going to go home. Follow-up with your primary care provider to evaluate your headaches if they do not improve. RETURN TO THE EMERGENCY ROOM IF ANY NEW OR WORSENING SYMPTOMS. Referrals: ABBY MCCANN MD [Primary Care Provider] - Follow up as needed Scribe Attestation: 06/01/19 06:49 I personally performed the services described in the documentation, reviewed and edited the documentation which was dictated to the scribe in my presence, and it accurately records my words and actions. I personally performed the services described in the documentation, reviewed and edited the documentation which was dictated to the scribe in my presence, and it accurately records my words and actions.
== END 2019-06-01 07:58 | disposition left against medical advice (07) ==
LOC: ER 06:02
DX: R51 Headache (principal); H53.8 Other visual disturbances; R11.2 Nausea with vomiting, unspecified; Z88.6 Allergy status to analgesic agent; Z88.2 Allergy status to sulfonamides
CPT/HCPCS: 99283

== ENCOUNTER 2019-11-01 11:40 | Emergency (ER) | payer BC ==
[2019-11-01] MEDS ORDERED: ONDANSETRON HCL INJ/PF 4 MG/2 ML SDV IV ONE (12:06)
[2019-11-01] MEDS ORDERED: NORMAL SALINE 1000 ML 1,000 ML IV ONE (12:06)
--- NOTE | 2019-11-01 12:06 | ER Document Report ---
ED Medical Screen (RME) - General Chief Complaint: Nausea/Vomiting Stated Complaint: HEADACHE/NAUSEA/VOMITING Time Seen by Provider: 11/01/19 12:02 Primary Care Provider: ABBY MCCANN MD [Primary Care Provider] - Follow up as needed Mode of Arrival: Ambulatory Information source: Patient Notes: 29-year-old female presented to ED for complaint of headache x5 days with nausea and vomiting x5 days. She states she has been febrile off and on the next 5 days but she has not taken any medications for this due to the nausea and vomiting. She is afebrile while seen in the emergency room. She states her primary care doctor sent her over to the emergency room to be evaluated for meningitis and to get IV fluids. Patient is alert oriented respirations regular nonlabored speaking in full sentences. Patient states that the primary care did a flu test which was negative. She states she is on Depo-Provera and a left oophorectomy. After performing a Medical Screening Examination, I spoke with the patient at length in regards to leaving the hospital against medical advice. I do not believe the patient should leave but the patient is alert oriented x4, u nderstands the risks and benefits of staying and leaving including disability and . Pt understands that he can return at any time for further care and is more than welcome to do so. Pt verbalizes this understanding. TRAVEL OUTSIDE OF THE [place] IN LAST 30 DAYS: No - Related Data Allergies/Adverse Reactions: ibuprofen Allergy (Verified 11/01/19 12:02) morphine [Morphine] Allergy (Verified 11/01/19 12:02) naproxen [Naproxen] Allergy (Verified 11/01/19 12:02) NSAIDS (Non-Steroidal Anti-Inflamma Allergy (Verified 11/01/19 12:02) Sulfa (Sulfonamide Antibiotics) Allergy (Verified 11/01/19 12:02) Past Medical History Pulmonary Medical History: Reports: Hx Asthma, Hx Bronchitis Neurological Medical History: Reports: Hx Migraine Renal/ Medical History: Denies: Hx Peritoneal Dialysis Psychiatric Medical History: Reports: Hx Depression Past Surgical History: Reports: Hx Adenoidectomy, Hx Gynecologic Surgery - Left Salpingo-oophrectomy, Hx Tonsillectomy, Other - Left oophorectomy - Immunizations Hx Diphtheria, Pertussis, Tetanus Vaccination: Yes Physical Exam - Vital signs Vitals: Temp Pulse Resp BP Pulse Ox 98.5 F 68 18 118/75 100 11/01/19 11:45 11/01/19 11:45 11/01/19 11:45 11/01/19 11:45 11/01/19 11:45 Course - Vital Signs Vital signs: Temp Pulse Resp BP Pulse Ox 98.5 F 68 18 118/75 100 11/01/19 11:45 11/01/19 11:45 11/01/19 11:45 11/01/19 11:45 11/01/19 11:45 Doctor's Discharge - Discharge Referrals: ABBY MCCANN MD [Primary Care Provider] - Follow up as needed
[2019-11-01 12:39] LABS: ABSOLUTE BASOPHILS # (AUTO) 0.1 10^3/uL (0.0-0.2); ABSOLUTE LYMPHOCYTES (AUTO) 1.7 10^3/uL (0.5-4.7); ABSOLUTE MONOCYTES (AUTO) 0.6 10^3/uL (0.1-1.4); ABSOLUTE NEUT (AUTO) 9.4 10^3/uL (1.7-8.2); BASOPHILS % (AUTO) 0.6 % (0-2); EOSINOPHILS % (AUTO) 0.1 % (0-6); HEMATOCRIT 43.8 % (36.0-47.0); HEMOGLOBIN 14.8 g/dL (12.0-15.5); LYMPHOCYTES % (AUTO) 14.6 % (13-45); MEAN CORPUSCULAR HEMOGLOBIN 28.8 pg (27.0-33.4); MEAN CORPUSCULAR HGB CONC 33.8 g/dL (32.0-36.0); MEAN CORPUSCULAR VOLUME 85 fl (80-97); MONOCYTES % (AUTO) 4.8 % (3-13); PLATELET COUNT 313 10^3/uL (150-450); RED BLOOD COUNT 5.14 10^6/uL (3.72-5.28); RED CELL DISTRIBUTION WIDTH 13.6 % (11.5-14.0); SEGMENTED NEUTROPHILS % (AUTO) 79.9 % (42-78); TOTAL CELLS COUNTED % (AUTO) 100 %; WHITE BLOOD COUNT 11.7 10^3/uL (4.0-10.5)
[2019-11-01 12:48] LABS: APPEARANCE,URINE SLIGHTLY-CLOUDY; BILIRUBIN,URINE NEGATIVE (NEGATIVE); COLOR,URINE YELLOW; GLUCOSE, URINE NEGATIVE (NEGATIVE); KETONES,URINE 20 mg/dL (NEGATIVE); PROTEIN,URINE NEGATIVE (NEGATIVE); URINE SPECIFIC GRAVITY 1.024; UROBILINOGEN,URINE NEGATIVE mg/dL (<2.0)
[2019-11-01 12:57] LABS: ALBUMIN 4.9 g/dL (3.5-5.0); ALKALINE PHOSPHATASE 70 U/L (38-126); ANION GAP 15 (5-19); ASPARTATE AMINO TRANSFERASE 21 U/L (14-36); BILIRUBIN,DIRECT 0.1 mg/dL (0.0-0.4); BILIRUBIN,TOTAL 0.4 mg/dL (0.2-1.3); BLOOD UREA NITROGEN 9 mg/dL (7-20); CALCIUM 10.1 mg/dL (8.4-10.2); CARBON DIOXIDE 22 mmol/L (22-30); CHLORIDE 106 mmol/L (98-107); GLUCOSE 93 mg/dL (75-110); POTASSIUM 4.2 mmol/L (3.6-5.0)
[2019-11-01] MEDS ORDERED: PROCHLORPERAZINE EDISYLATE INJ 10 MG/2 ML VIAL IV ONE (14:05)
--- NOTE | 2019-11-01 14:06 | ER Document Report ---
ED Headache - General Chief Complaint: Headache Stated Complaint: HEADACHE/NAUSEA/VOMITING Time Seen by Provider: 11/01/19 12:02 Primary Care Provider: ABBY MCCANN MD [NO LOCAL MD] - Follow up as needed Mode of Arrival: Ambulatory Notes: 29-year-old woman with a history of migraine headaches presents to the emergency department with a complaint of headache with associated nausea and vomiting. The symptoms began yesterday. She states she took her usual medication without any improvement. She also notes that the headache is different from her usual migraine headaches. She has had continued nausea and vomiting. She was given Zofran in the emergency department which has controlled the symptoms. TRAVEL OUTSIDE OF THE [place] IN LAST 30 DAYS: No - Related Data Allergies/Adverse Reactions: ibuprofen Allergy (Verified 11/01/19 12:02) morphine [Morphine] Allergy (Verified 11/01/19 12:02) naproxen [Naproxen] Allergy (Verified 11/01/19 12:02) NSAIDS (Non-Steroidal Anti-Inflamma Allergy (Verified 11/01/19 12:02) Sulfa (Sulfonamide Antibiotics) Allergy (Verified 11/01/19 12:02) Past Medical History - General Information source: Patient - Social History Smoking Status: Current Every Day Smoker Chew tobacco use (# tins/day): No Drug Abuse: None Family History: Reviewed & Not Pertinent, CAD, Thyroid Disfunction, Other - H ypertrophic cardiomyopathy Patient has suicidal ideation: No Patient has homicidal ideation: No Pulmonary Medical History: Reports: Hx Asthma, Hx Bronchitis Neurological Medical History: Reports: Hx Migraine Renal/ Medical History: Denies: Hx Peritoneal Dialysis Psychiatric Medical History: Reports: Hx Depression Past Surgical History: Reports: Hx Adenoidectomy, Hx Gynecologic Surgery - Left Salpingo-oophrectomy, Hx Tonsillectomy, Other - Left oophorectomy - Immunizations Hx Diphtheria, Pertussis, Tetanus Vaccination: Yes Review of Systems - Review of Systems Notes: Constitutional: Negative for fever. HENT: Negative for sore throat. Eyes: Negative for visual changes. Cardiovascular: Negative for chest pain. Respiratory: Negative for shortness of breath. Gastrointestinal: + Nausea and vomiting Genitourinary: Negative for dysuria. Musculoskeletal: Negative for back pain. Skin: Negative for rash. Neurological: + headaches 10 point ROS negative except as marked above and in HPI. Physical Exam - Vital signs Vitals: Temp Pulse Resp BP Pulse Ox 98.5 F 68 18 118/75 100 11/01/19 11:45 11/01/19 11:45 11/01/19 11:45 11/01/19 11:45 11/01/19 11:45 - Notes Notes: PHYSICAL EXAMINATION: Physical Exam: General: Well-nourished well-developed female in no acute distress HEENT: NC/AT, pupils equal round and reactive to light, MM moist,nares clear, Neck: supple, no adenopathy, no masses. Lungs: clear, no wheezing, no rales no rhonchi CVS: Regular rate and rhythm no murmur gallop or rub Abdomen: Soft active nontender, no masses, no hepatosplenomegaly Ext: No edema clubbing or cyanosis. Neuro: Alert and responsive, moving all 4 extremities on command, cranial nerves intact. Skin: Intact no open lesions, no rash PSYCH: Normal mood, normal affect. Course - Re-evaluation Re-evalutation: 11/01/19 15:32 Patient received Zofran in the emergency department along with IV fluids, I have ordered a dose of Compazine, the patient states that she is feeling much better and would like to leave without receiving any further medications. I have asked her to follow-up with her neurologist regarding long-term management. She is given a prescription for Zofran. Patient is in agreement with that plan. - Vital Signs Vital signs: Temp Pulse Resp BP Pulse Ox 98.5 F 68 18 118/75 100 11/01/19 12:03 11/01/19 12:03 11/01/19 12:03 11/01/19 12:03 11/01/19 12:03 - Laboratory Result Diagrams: 11/01/19 12:15 11/01/19 12:15 Laboratory results interpreted by me: 11/01/19 11/01/19 11/01/19 12:15 12:15 12:15 WBC 11.7 H Absolute Neuts (auto) 9.4 H Seg Neutrophils % 79.9 H Creatinine 0.48 L Urine Ketones 20 H Urine Ascorbic Acid 40 H 11/01/19 15:32 I have reviewed laboratory data and used this information for the treatment decisions regarding the patient. Discharge - Discharge Clinical Impression: Headache Qualifiers: Headache type: unspecified Headache chronicity pattern: acute headache Intractability: not intractable Qualified Code(s): R51 - Headache Nausea and vomiting Qualifiers: Vomiting type: unspecified Vomiting Intractability: non-intractable Qualified Code(s): R11.2 - Nausea with vomiting, unspecified Condition: Good Disposition: HOME, SELF-CARE Instructions: Antinausea Medication ([facility]), Headache ([facility]) Additional Instructions: You have been seen in the Emergency Department (ED) for a headache. Please use Tylenol (acetaminophen) or Motrin (ibuprofen) as needed for symptoms, but only as written on the box. As we have discussed, please follow up with your primary care doctor as soon as possible regarding today's ED visit and your headache symptoms. Referrals: ABBY MCCANN MD [NO LOCAL MD] - Follow up as needed
[2019-11-01 15:45] VITALS: BP 121/75
== END 2019-11-01 15:45 | disposition home or self-care (01) ==
LOC: ER 11:40
DX: R51 Headache (principal); R11.2 Nausea with vomiting, unspecified; F17.200 Nicotine dependence, unspecified, uncomplicated; J45.909 Unspecified asthma, uncomplicated; Z86.69 Personal history of other diseases of the nervous system and sense organs; Z88.8 Allergy status to other drugs, medicaments and biological substances; Z88.6 Allergy status to analgesic agent; Z88.5 Allergy status to narcotic agent; Z88.2 Allergy status to sulfonamides
CPT/HCPCS: 99283; 96361; 96374; 36415; 87040; 84702; 85025; 80053; 81001; J2405; J7030

== ENCOUNTER → 2020-05-13 | Outpatient (CLI) | payer BC ==
[2020-05-13 11:39] VITALS: BP 125/77
--- NOTE | 2020-05-13 11:39 | ER RDC ASSESSMENT REPORT ---
Intake - In the Last 14 days Have you traveled outside [place]?: No Have you been in close contact with someone CONFIRMED: No Worked in Healthcare?: No - Symptoms Subjective Fever([place] feverish): Yes Chills: Yes Muscule Aches: Yes Runny Nose: Yes Sore Throat: Yes Cough (New or worsening chronic cough): Yes Shortness of breath: Yes Nausea or Vomiting: Yes Headache: Yes Abdominal Pain: No Diarrhea(3 or more loose stools in last 24 hours): Yes - Do you have any of the following Chronic lung disease: Asthma or emphysema or COPD: Yes Chronic Lung Disease Comment: asthma Cystic Fibrosis: No Diabetes: No High Blood Pressure: No Cardiovascular Disease: No Chronic Kidney Disease: No Chronic Liver Disease: No Chronic blood disorder like Sickle Cell Disease: No Weak immune system due to disease or medication: No Neurologic condition that limits movement: Yes Developmental delay - Moderate to Severe: No Recent (within past 2 weeks) or current : No Morbid Obesity (>100 pounds over ideal weight): No - Objective Vital Signs: 5'8" 190 lb Temperature: 97.8 F Pulse Rate: 65 Respiratory Rate: 16 Blood Pressure: 125/77 O2 Sat by Pulse Oximetry: 98 Objective: Given above, testing performed: flu, strep and covid Disposition: Home; Selfcare General - General Chief Complaint: Flu Symptoms Time Seen by Provider: 05/13/20 11:00 Mode of Arrival: Ambulatory Information source: Patient - HPI Notes: 30-year-old female presents to [facility] clinic for COVID-19 testing. Patient does have medical history significant for lupus, asthma, and some type of unknown neurological disorder that is currently under work-up. Patient is reporting onset of symptoms last Monday. She states symptoms are still present at this time however they are starting to improve. Patient is reporting mild subjective fever, chills, mild algia, runny nose, sore throat, dry cough, shortness of breath, nausea, headache, and diarrhea. Patient is denying any abdominal pain. No exacerbating factors. She has been taking Tylenol for relief of symptoms. She states she has not needed albuterol inhaler any more frequently than her baseline. - Related Data Allergies/Adverse Reactions: ibuprofen Allergy (Verified 11/01/19 12:02) morphine [Morphine] Allergy (Verified 11/01/19 12:02) naproxen [Naproxen] Allergy (Verified 11/01/19 12:02) NSAIDS (Non-Steroidal Anti-Inflamma Allergy (Verified 11/01/19 12:02) Sulfa (Sulfonamide Antibiotics) Allergy (Verified 11/01/19 12:02) Home Medications: Albuterol tramadol baclofen Valium Tylenol Past Medical History - General Information source: Patient - Social History Smoking Status: Former Smoker Lives with: Spouse/Significant other Family History: Reviewed & Not Pertinent, CAD, Thyroid Disfunction, Other - Hypertrophic cardiomyopathy - Past Medical History Cardiac Medical History: Reports: None Pulmonary Medical History: Reports: Hx Asthma, Hx Bronchitis EENT Medical History: Reports: None Neurological Medical History: Reports: Hx Migraine Endocrine Medical History: Reports: None Renal/ Medical History: Reports: None. Denies: Hx Peritoneal Dialysis Malignancy Medical History: Reports: None GI Medical History: Reports: None Musculoskeletal Medical History: Reports None Skin Medical History: Reports None Psychiatric Medical History: Reports: Hx Depression Traumatic Medical History: Reports: None Infectious Medical History: Reports: None Past Surgical History: Reports: Hx Adenoidectomy, Hx Gynecologic Surgery - Left Salpingo-oophrectomy, Hx Tonsillectomy, Other - Left oophorectomy Physical Exam - General General appearance: Appears well In distress: None Notes: PHYSICAL EXAMINATION: GENERAL: Well-appearing and in no acute distress. HEAD: Atraumatic, normocephalic. EYES: sclera anicteric, conjunctiva are normal. ENT: nares patent. Moist mucous membranes. NECK: Normal range of motion, supple without lymphadenopathy LUNGS: CTAB and equal. No wheezes rales or rhonchi. HEART: Regular rate and rhythm without murmurs ABDOMEN: Soft, nontender, normal bowel sounds, no guarding. EXTREMITIES: Normal range of motion, no pitting edema. No cyanosis. NEUROLOGICAL: Cranial nerves grossly intact. Normal speech. PSYCH: Normal mood, normal affect. SKIN: Warm, Dry, normal turgor, no rashes or lesions noted Patient Education/Counseling Counseling/Education: Patient presents with upper respiratory symptoms worrisome for possible Covid 19. Symptoms appear to be improving over the past 2 to 3 days per patient report. Patient does not have emergency worrying symptoms such as difficulty breathing, shortness of breath, chest pain, pressure, confusion or cyanosis. Patient appears suitable for discharge as vital signs are stable and patient is nontoxic in appearance. Good return precautions have been discussed with patient, patient verbalized understanding and is agreeable with discharge plan of care at this time. Guidance for worsening S/SX: As a person under investigation for Covid 19, the [facility] and Human Services, division of public health advises you to adhere to the following guidance until your test results are reported to you. If your test result is positive, you will receive additional information from your provider and your local health department at that time. Remain at home until you are cleared by the health provider or public health authorities. Keep a log of visitors to your home, notify any visitors to your home of your isolation status. If you plan to move to a new address or leave the county, notify the local health department in your County. Call your doctor or seek care if you have an urgent medical need. Before seeking medical care, call ahead to get instructions from the provider before arriving at the medical office clinic or hospital. Notify them that you are being tested for the virus that causes Covid 19 so that arrangements can be made, as necessary, to prevent transmission to others in the healthcare setting. Next, notify the local health department in your county. If a medical emergency arises and you need to call 911, inform the first responders that you are being tested for the virus that causes Covid 19. Next, notify the local health department in your county. RDC Discharge - Discharge Clinical Impression: Encounter for screening laboratory testing for COVID-19 virus Upper respiratory infection Qualifiers: URI type: unspecified URI Qualified Code(s): J06.9 - Acute upper respiratory infection, unspecified Condition: Good Disposition: Home; Selfcare
[2020-05-13 12:12] LABS: A TYPE INFLUENZA AG NEGATIVE (NEGATIVE); B INFLUENZA AG NEGATIVE (NEGATIVE)
== END ==
LOC: RDC 10:19
PROVIDERS: ATTEND Registered Nurse
DX: Z20.828 Contact with and (suspected) exposure to other viral communicable diseases (principal); J06.9 Acute upper respiratory infection, unspecified; R50.9 Fever, unspecified; J02.9 Acute pharyngitis, unspecified; R05 Cough; R06.02 Shortness of breath; M79.10 Myalgia, unspecified site; R11.0 Nausea; R51 Headache; R19.7 Diarrhea, unspecified; J45.909 Unspecified asthma, uncomplicated; M32.9 Systemic lupus erythematosus, unspecified; R29.90 Unspecified symptoms and signs involving the nervous system; R09.89 Other specified symptoms and signs involving the circulatory and respiratory systems; Z88.2 Allergy status to sulfonamides; Z88.6 Allergy status to analgesic agent; Z88.8 Allergy status to other drugs, medicaments and biological substances; Z87.891 Personal history of nicotine dependence
CPT/HCPCS: 87070; 87880; 87635; 87804; C9803